=== PATIENT | female | born 1995 | race Caucasian/White ===

== ENCOUNTER 2016-12-13 11:40 | Inpatient (IN) | payer OTHER ==
[~2016-12-13] VITALS: Ht 160 cm; Wt 42.9 kg
[2016-12-13 12:00] VITALS: BP 109/69
[2016-12-13] MEDS ORDERED: SEROQUEL100 MG PO (12:12)
[2016-12-13] MEDS ORDERED: ZOLOFT100 MG PO (12:13)
[2016-12-13 12:53] LABS: BASO % 0.3 % (0.0-1.0); EOS # 0.1 10*3/uL (0.0-0.4); EOS % 1.9 % (1.0-4.0); HEMATOCRIT 34.6 % (37.0-47.0); HEMOGLOBIN 12.3 g/dl (12.0-16.0); LYMPH # 2.4 10*3/uL (1.3-4.4); LYMPH % 42.3 % (27.0-41.0); MEAN CORPUSCULAR HGB 32.7 pg (27.0-31.0); MEAN CORPUSCULAR HGB CONC 35.5 g/dl (33.0-37.0); MEAN PLATELET VOLUME 10.2 fl (9.6-12.3); MONO # 0.6 10*3/uL (0.1-1.0); MONO % 10.1 % (3.0-9.0); NEUT # 2.6 10*3/uL (2.3-7.9); NEUT % 45.4 % (47.0-73.0); PLATELET COUNT AUTOMATED 202 10*3/uL (130-400); RED BLOOD COUNT 3.76 10*6/uL (4.10-5.10); RED CELL DISTRI WIDTH 13.2 % (0-14.5); WHITE BLOOD COUNT 5.7 10*3/uL (4.8-10.8)
[2016-12-13 13:04] LABS: INTERNATIONAL NORM RATIO 1.1 (2.0-3.5); PROTHROMBIN TIME 11.2 SECONDS (9.0-12.4)
[2016-12-13 13:15] LABS: ALBUMIN 3.7 gm/dl (3.1-4.5); ALKALINE PHOSPHATASE 77 U/L (45-117); BILIRUBIN, TOTAL 0.8 mg/dl (0.2-1.0); BUN 14 mg/dl (7-24); CARBON DIOXIDE 28 mmol/L (21-32); CHLORIDE 108 mmol/L (98-107); EST GLOM FILT AFRICAN AMERICAN > 60 ml/min; GLUCOSE 98 mg/dL (65-99); SGOT/AST 16 IU/L (3-35); SGPT/ALT 16 U/L (12-78); SODIUM 146 mmol/L (136-145); TOTAL PROTEIN 6.6 gm/dL (6.4-8.2)
[2016-12-13 16:00] VITALS: BP 124/85
[2016-12-13 20:00] VITALS: BP 108/67
[2016-12-14] VITALS: BP 107/57
[2016-12-14 04:00] VITALS: BP 102/65
[2016-12-14 06:53] LABS: BILIRUBIN NEGATIVE (NEGATIVE); BLOOD NEGATIVE (NEGATIVE); CLARITY CLEAR (CLEAR); COLOR YELLOW (YELLOW); GLUCOSE NEGATIVE (NEGATIVE); KETONE NEGATIVE (NEGATIVE); LEUKO ESTERASE NEGATIVE (NEGATIVE); NITRITE NEGATIVE (NEGATIVE); PROTEIN NEGATIVE (NEGATIVE)
[2016-12-14 07:12] LABS: BACTERIA TRACE; URINE REFLEX COMMENT NO (NO); WBC 0-2 wbc/hpf (0-5)
[2016-12-14 08:00] VITALS: BP 126/72
[2016-12-14 12:00] VITALS: BP 120/78
[2016-12-14 14:58] LABS: URINE AMPHETAMINES < 1000 (1000ng/ml); URINE BARBITURATES < 200 (200ng/ml); URINE COCAINE > 300 (300ng/ml)
[2016-12-14 16:00] VITALS: BP 110/66
[2016-12-14 20:00] VITALS: BP 109/76
[2016-12-15] VITALS: BP 123/82
[2016-12-15 08:00] VITALS: BP 104/65
[2016-12-15 12:00] VITALS: BP 120/72
[2016-12-15 16:00] VITALS: BP 124/77
[2016-12-15 20:00] VITALS: BP 117/77
[2016-12-16] VITALS: BP 97/66
[2016-12-16 08:00] VITALS: BP 109/82
[2016-12-16] MEDS ORDERED: ZOFRAN 4 MG ED2 TAB PO (09:28)
[2016-12-16] MEDS ORDERED: ATARAX,VISTARIL50 MG PO (09:28)
[2016-12-16] MEDS ORDERED: CARBIDOPA/LEVOD1 TA1 PO (09:28)
== END 2016-12-16 10:18 | disposition home or self-care (01) | DRG 897 ==
LOC: 4E 11:40
PROVIDERS: Internal Medicine Hospice and Palliative Medicine
DX: F11.23 Opioid dependence with withdrawal (principal); E87.0 Hyperosmolality and hypernatremia; E87.8 Other disorders of electrolyte and fluid balance, not elsewhere classified; E44.0 Moderate protein-calorie malnutrition; Z68.1 Body mass index [BMI] 19.9 or less, adult; F41.9 Anxiety disorder, unspecified; R61 Generalized hyperhidrosis; G25.81 Restless legs syndrome; F17.210 Nicotine dependence, cigarettes, uncomplicated; F32.9 Major depressive disorder, single episode, unspecified; R00.1 Bradycardia, unspecified; F14.10 Cocaine abuse, uncomplicated; F12.10 Cannabis abuse, uncomplicated; Z71.6 Tobacco abuse counseling; Z79.899 Other long term (current) drug therapy